=== PATIENT | male | born 1965 | race Caucasian/White ===

== ENCOUNTER 2018-10-15 07:20 | Day surgery (SDC) | payer BC ==
--- NOTE | 2018-10-10 14:59 | RAD REPORT ---
EXAM DESCRIPTION: RAD - Chest Pa And Lat (2 Views) - 10/10/2018 2:53 pm CLINICAL HISTORY: preop Chest pain. COMPARISON: Abdomen 1 View (KUB) dated 09/26/2018 FINDINGS: The lungs are clear. The heart is normal in size. No displaced fractures. IMPRESSION: No acute or concerning finding suspected.
[2018-10-10 17:36] LABS: Absolute Lymphocytes (CBC) 1.6 K/uL (0.7-4.9); Basophils % 0.7 % (0-1.3); Eosinophils % 4.1 % (0-4.4); Hematocrit 46.3 % (39.6-49.0); Lymphocytes % 27.3 % (15.3-44.8); MPV 9.6 fL (7.6-11.3); Monocytes % 16.9 % (3.3-12.3); RBC Red Blood Cell Count 4.86 M/uL (4.33-5.43)
[2018-10-10 17:46] LABS: Potassium 3.8 mmol/L (3.5-5.1)
[2018-10-10 17:50] LABS: Albumin 4.3 g/dL (3.4-5.0); Bilirubin Direct 0.2 mg/dL (0-0.2); Bilirubin Total 0.7 mg/dL (0.2-1.0); Protein, Total 8.5 g/dL (6.4-8.2)
[2018-10-10 18:59] LABS: Blood Morphology Comment NOT SEEN (NOT SEEN); Platelet Estimate ADEQ
--- NOTE | 2018-10-11 05:15 | EKG ---
Test Date: 2018-10-10 Test Time: 14:44:36 [place] Service Captain: FIDE MEASUREMENT RESULTS: Intervals: Rate: 66 MI: 192 QRSD: 78 QT: 390 QTc: 408 [place]: P: 41 MI: 192 QRS: -8 T: 15 INTERPRETIVE STATEMENTS: Normal sinus rhythm Inferior infarct, age undetermined Abnormal ECG No previous ECG available for comparison Electronically Signed On 10-11-18 05:15:11 MANAGER PHARM[employer] by Gianni Boyce
[2018-10-15] MEDS ORDERED: Ringers Lactate 1,000 ML IV ONE ×2 (08:01→09:58)
[2018-10-15] MEDS ORDERED: MIDAZOLAM HCL 2 MG/2 ML INJ ONE (08:14)
[2018-10-15] MEDS ORDERED: PROPOFOL 200 MG/20 ML VIAL IV ONE (08:14)
[2018-10-15] MEDS ORDERED: GLYCOPYRROLATE 0.2 MG/ML SYR ONE (08:15)
[2018-10-15] MEDS ORDERED: FENTANYL CITR 250 MCG/5 ML ONE (08:16)
[2018-10-15] MEDS ORDERED: LIDOCAINE 2% MPF 5 ML VIAL ONE ×2 (08:16→09:48)
[2018-10-15] MEDS ORDERED: ONDANSETRON 4 MG/2 ML VIAL ONE (08:21)
[2018-10-15] MEDS ORDERED: ROCURONIUM 50 MG/5 ML VIAL IV ONE (08:21)
[2018-10-15] MEDS ORDERED: NEOSTIGMINE 1 MG/ML -5 ML SYRINGE ONE (09:03)
[2018-10-15] MEDS ORDERED: EPHEDRINE SULF 50 MG/10 ML SYR ONE (09:24)
[2018-10-15] MEDS ORDERED: CEFOXITIN/SWI 1gm 1 GM/10 ML SYR ONE (09:35)
--- NOTE | 2018-10-15 09:55 | P.BOP ---
Preoperative diagnosis: acute cholecystitis, symptomatic cholelithiasis Postoperative diagnosis: same Primary procedure: 1. Laparoscopic cholecystectomy Secondary procedure: 2. Laparoscopic liver biopsy Learning Disabled Teacher: Leyla Roman) Estimated blood loss: <10cc Specimen: gb Findings: as above Anesthesia: General Complications: None Transferred to: Recovery Room
[2018-10-15] MEDS ORDERED: CEFOXITIN SODIUM 1 GM/VIAL IVPB SCH (10:00)
[2018-10-15] MEDS ORDERED: CODEINE 30MG/APAP 300MG TAB ONE (11:01)
--- NOTE | 2018-10-15 20:59 | OP ---
Date of Procedure: 10/15/2018 Surgeon: Melvin Arce MD Manager Floor: PARESH Cao. Preoperative Diagnoses: Acute cholecystitis, symptomatic cholelithiasis, increased liver enzymes. Postoperative Diagnoses: Acute cholecystitis, symptomatic cholelithiasis, increased liver enzymes. Procedure: 1.Laparoscopic cholecystectomy. 2.Laparoscopic liver biopsy. Estimated Blood Loss: Less than 10 cc. Specimen: Gallbladder and liver biopsy. Findings: As above. Anesthesia: General plus local. Indications: This is a case of a male, who comes to us with symptomatic cholelithiasis, acute cholec ystitis. The patient has been seen by the gas brazer and the primary doctor since the liver enzymes in this case, AST, and ALT are elevated. The primary doctor, Dr. Samuels asked me to do a lit tle liver biopsy while we would do the laparoscopic cholecystectomy to rule out any liver disease. T he benefits, alternatives, and risks of both procedures were fully explained to the patient, which in clude but are not limited to infection, bleeding, damage to adjacent structures, anesthesia complicat ion, choledocholithiasis, bile leak, pancreatitis, AR, and even . He also understands this may not relieve any symptoms. He might need more than one surgical intervention. He was advised to disc uss the liver biopsy results with his primary doctor and his gas brazer as a postop evaluatio n. He has signed the consent. Description Of Procedure: The patient was brought to the operating room, placed in supine position. Anesthesia was done without complication. Abdominal area was prepped and draped in a sterile fashio n. Marcaine 0.5% injected for local anesthetic, followed by sharp incision of skin in the infraumbil ical region. Incision was carried down to fascia, which was opened under direct vision. Peritoneum was encountered, opened under direct vision. Vicryl #1 placed inside the fascia. Niecy trocar was carefully introduced. No bleeding was obtained. We placed 2 more trocars, 5 mm each one of them, in the right upper quadrant under direct visualization. Grasper was placed in the fundus of the gallbl adder, another grasper in the infundibulum. We retracted the gallbladder in inferolateral fashion ex posing the triangle of Calot and obtaining critical view of safety. The cystic duct and cystic arter y were clearly isolated free circumferentially and a connection between those and the gallbladder wer e clearly identified. I proceeded to ligate those by using at least 3 clips proximal and 1 clip dist al, ligation in middle. Same was done with the cystic artery. No bile leak. No bleeding. The gall bladder was removed from liver using Bovie cauterizer and removed from the abdominal cavity using an EndoCatch through an umbilical incision. The area was inspected once again. Clips were intact. Gal lbladder fossa with no bleeding, no bile leak. At that moment, I proceeded to take a look at the chantal er. It looks smooth with no obvious masses at least outside in the parenchyma. Still we proceeded w ith the request of the GI doctor and a gas brazer, we proceeded to do a biopsy of the liver o n the anterior part of it and the area was intact. Bovie cauterizer was used to control any bleeding . Biopsy was sent to the pathologist. The patient tolerated the procedure well. The area was check ed once again after irrigation and suction, with no bleeding. At that moment, I proceeded to remove the trocars under direct vision. Deflated pneumoperitoneum. Closed the fascia with #1 Vicryl. Irri gated the subcutaneous tissue, closed that with 3-0 chromic, and skin with 3-0 chromic in a subcuticu lar fashion. Sponge count and instrument counts were correct. The patient tolerated the procedure w ell. The patient was sent to recovery in stable condition. ROLANDO/QI Voice ID: [id number] Report ID: [id number]
--- NOTE | 2018-10-15 21:05 | DS ---
Date of Discharge: 10/15/2018 Diagnoses: Acute cholecystitis symptomatic cholelithiasis, increased liver enzymes, Procedure: Laparoscopic cholecystectomy, laparoscopic liver biopsy. Disposition: Home. Activity: As tolerated. No heavy lifting. Followup: Follow up in my office in 1 week. Call for appointment at [phone]. Keep the area dry fo r 48 hours, then may shower. Keep Steri-Strips intact. Medications: See orders. ROLANDO/QI Voice ID: [id number] Report ID: [id number]
== END 2018-10-15 12:00 | disposition home or self-care (01) ==
LOC: OR 07:20
PROVIDERS: ATTEND Surgery
PROC: 0FB04ZX Excision of Liver, Percutaneous Endoscopic Approach, Diagnostic (ICD-10-PCS; 2018-10-15)
PROC: 0FT44ZZ Resection of Gallbladder, Percutaneous Endoscopic Approach (ICD-10-PCS; principal; 2018-10-15 08:30)
DX: K80.12 Calculus of gallbladder with acute and chronic cholecystitis without obstruction (principal); K73.9 Chronic hepatitis, unspecified; K76.0 Fatty (change of) liver, not elsewhere classified; I10 Essential (primary) hypertension; K21.9 Gastro-esophageal reflux disease without esophagitis
CPT/HCPCS: 36415; 71046; 80048; 80076; 82150; 83690; 85025; 88304; 88305; 88307; 88313; 93005; J2250; J2405; J2704; J2710; J3010